=== PATIENT | male | born 1970 | race Two or more races ===

== ENCOUNTER 2017-12-19 08:52 | Outpatient (CLI) | payer OTHER ==
[2017-12-19] MEDS ORDERED: IOHEXOL 300mgI/mL 100 ML VIAL IVP ONE (09:06)
--- NOTE | 2017-12-19 10:06 | Diagnostic Imaging Report ---
CT scan abdomen and pelvis without intravenous contrast HISTORY: Renal mass Total DLP equals 1149 CTDI equals 20.7 Axial sections were obtained from the xiphoid process down to the pubic symphysis before and after administration of intravenous contrast. The liver exhibits a homogeneous parenchyma. No focal lesions. The spleen appears normal. No abnormality seen in the region of the pancreas. The exam of the right kidney demonstrates an approximate 4.2 x 3.0 cm well-circumscribed hypodense lesion within the mid/lower portion. Density measurements are consistent with a cyst. An additional 1.4 cm lesion consistent with a cyst is noted near the renal pelvis. No hydronephrosis. No calculi are seen. The left kidney is normal in size. There is a punctate calcification noted within the medullary region. No hydronephrosis. The adrenal glands appear normal bilaterally. The exam of the pelvis demonstrates preservation of normal fat planes. No abnormal soft tissue masses or abnormal fluid collections. Mild enlargement of the prostate gland with slight encroachment on the floor the urinary bladder. IMPRESSION: 1. Findings consistent with right renal cysts 2. Punctate nonobstructing left renal calculus 3. Mild enlargement of the prostate gland slight encroachment on the floor of the urinary bladder
== END 2017-12-19 09:52 | disposition home or self-care (01) ==
LOC: RAD 08:52 → EEVIPCON 08:52 → RAD 09:52
DX: N20.0 Calculus of kidney (principal); N40.0 Benign prostatic hyperplasia without lower urinary tract symptoms
CPT/HCPCS: Q9967